=== PATIENT | female | born 1985 | race Caucasian/White ===

== ENCOUNTER 2017-07-21 11:40 | Emergency (ER) | payer OTHER ==
[~2017-07-21] VITALS: Ht 157.5 cm; Wt 102.3 kg
[2017-07-21 11:43] VITALS: BP 117/73
[2017-07-21] MEDS ORDERED: DEXAMETHASONE 4 MG TABLET ONE (12:08)
[2017-07-21] MEDS ORDERED: ALBUTEROL/IPRATROPIUM 2.5MG/0.5MG, 3 ML NPPB ONE (12:30)
[2017-07-21] MEDS ORDERED: DEXAMETHASONE 4 MG TABLET PO ONE (12:30)
[2017-07-21] MEDS ORDERED: ALBUTEROL/IPRATROPIUM 2.5MG/0.5MG, 3 ML ONE (12:51)
== END 2017-07-21 13:16 | disposition home or self-care (01) ==
LOC: ED 13:10
DX: J45.901 Unspecified asthma with (acute) exacerbation (principal); J18.9 Pneumonia, unspecified organism
CPT/HCPCS: 71046; 93005; 94640; 99284; J7620